=== PATIENT | female | born 2000 | race Caucasian/White ===

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

== ENCOUNTER → 2019-11-16 | Outpatient (CLI) | payer OTHER ==
--- NOTE | 2019-11-16 12:54 | US ---
EXAMINATION TYPE: US transvaginal DATE OF EXAM: 11/16/2019 COMPARISON: NONE CLINICAL HISTORY: N94.6 dysmenorrhea. heavy cycles for over 3 month, G0, h/o ovarian cysts TECHNIQUE: TV. Transvaginal sonographic images Date of LMP: 10/28/2019 EXAM MEASUREMENTS: Uterus: 6.2 x 3.3 x 4.4 cm Endometrial Stripe: 0.4 cm Right Ovary: 3.4 x 3.1 x 1.9 cm Left Ovary: 2.7 x 1.4 x 1.6 cm 1. Uterus: Retroverted wnl 2. Endometrium: wnl 3. Right Ovary: multiple follicles under 1cm 4. Left Ovary: multiple follicles under 1cm 5. Bilateral Adnexa: mild free fluid adjacent to rt ovary 6. Posterior cul-de-sac: wnl IMPRESSION: Small ovarian follicles. Small amount of free fluid noted.
== END | disposition home or self-care (01) ==
LOC: RADUSWWP 10:57
PROVIDERS: ATTEND Family Medicine
DX: N94.6 Dysmenorrhea, unspecified (principal)
CPT/HCPCS: 76830

== ENCOUNTER 2020-12-01 13:05 | Outpatient (CLI) | payer OTHER ==
[2020-12-01 14:47] VITALS: BP 117/76; PULSE 74; RESP 14; TEMP 97.8
--- NOTE | 2020-12-05 07:51 | P.MSEPDOC ---
Presenting Problems - Arrival Data Date of Arrival on Unit: 12/01/20 Time of Arrival on Unit: 13:06 Mode of Transport: Ambulatory - Complaint OB-Reason for Admission/Chief Complaint: Other Comment: cramping after intercourse Medical History - Information : 1 Para: 0 Term: 0 : 0 Abortions: Spontaneous or Elective: 0 Number of Living Children: 0 - Gestational Age Gestational Age by GENIE (wks/days): 38 Weeks and 5 Days Review of Systems - Review of Systems Constitutional: No problems Breast: No problems ENT: No problems Cardiovascular: No problems Respiratory: No problems Gastrointestinal: No problems Genitourinary: No problems Musculoskeletal: No problems Neurological: No problems Skin: No problems Vital Signs - Temperature Temperature: 97.8 F Temperature Source: Oral - Pulse Right Brachial Pulse Rate: 74 Pulse Assessment Method: Automatic Cuff - Respirations Respiratory Rate: 14 Oxygen Delivery Method: Room Air O2 Sat by Pulse Oximetry: 98 - Blood Pressure Right Arm Blood Pressure: 117/76 Blood Pressure Mean: 89 Blood Pressure Source: Automatic Cuff Medical Screen Scoring - Cervical Exam Dilation (cm): 1 Effacement (%): 50 Station: -2 Membranes: Intact - Uterine Contractions Resting: Soft to palpation - Assessment - Baby A Baseline FHR: 125 Heart Rate - NICHD Category: Category I (Normal) NST: Reactive Physician Notification - Physician Notified Physician Notified Date: 12/01/20 Physician Notified Time: 13:12 Physician: Sylwia Busby Order Received: Yes - Notification Comment Comment: monitor for one hour, recheck cervix, dc home with no change Maternal Triage Index - Maternal Triage Index Presenting for scheduled procedure w/no complaint: No - Stat/Priority 1 Stat Priority 1: No - Urgent/Priority 2 Urgent Priority 2: No - Prompt/Priority 3 Prompt Priority 3: No - Non-Urgent/Priority 4 Non-Urgent Priority 4: Yes Criteria Met for Priority 4: spoke with dr busby Disposition - Disposition OB Disposition: Physician follow up in office, Discharge to home Discharge Date: 12/01/20 Discharge Time: 14:30 I agree with the RN Medical Screening Exam: Yes Case reviewed; plan agreed upon as documented in EMR&OBIX.: Yes Comments: Patient was neither seen nor examined by me Diagnosis: FALSE LABOR AT OR AFTER 37 COMPLETED WEEKS OF GESTATION
== END 2020-12-01 14:30 | disposition home or self-care (01) ==
LOC: FBPOP 13:05
PROVIDERS: ATTEND Obstetrics & Gynecology
DX: O47.1 False labor at or after 37 completed weeks of gestation (principal); Z3A.38 38 weeks gestation of pregnancy
CPT/HCPCS: 99213

== ENCOUNTER 2020-12-05 00:37 | Inpatient (IN) | payer OTHER ==
[2020-12-05] MEDS ORDERED: METHYLERGONOVINE 0.2 MG/ML 1 ML AMP IM PRN (00:59)
[2020-12-05] MEDS ORDERED: TERBUTALINE 1 MG/ML VIAL SQ PRN (00:59)
[2020-12-05] MEDS ORDERED: LIDOCAINE 0.5% (PF) 5 MG/ML (50 ML SDV) SQ PRN (00:59)
[2020-12-05] MEDS ORDERED: CARBOPROST TROMETHAMINE 250 MCG/ML 1 ML AMP IM PRN (00:59)
[2020-12-05] MEDS ORDERED: OXYTOCIN 10 UNIT/ML 1 ML VIAL IM PRN (00:59)
[2020-12-05] MEDS ORDERED: LACTATED RINGERS 1,000 ML IV SCH (01:00)
[2020-12-05] MEDS ORDERED: OXYTOCIN 30 UNITS/500 ML NS 30 UNIT in SALINE 1 500ML.BAG IV SCH ×2 (01:00→12:45)
[2020-12-05 01:47] LABS: Basophils % (A) 0 %; Eosinophils # (A) 0.2 k/uL (0-0.7); Eosinophils % (A) 1 %; HCT 36.5 % (34.0-46.0); HGB 12.5 gm/dL (11.4-16.0); Lymphocytes # (A) 2.4 k/uL (1.0-4.8); Lymphocytes % (A) 19 %; MCH 29.5 pg (25.0-35.0); MCHC 34.4 g/dL (31.0-37.0); MCV 85.9 fL (80.0-100.0); Monocytes # (A) 0.7 k/uL (0-1.0); Monocytes % (A) 5 %; Neutrophils # (A) 8.9 k/uL (1.3-7.7); Neutrophils % (A) 72 %; Platelet Count 317 k/uL (150-450); RBC 4.25 m/uL (3.80-5.40); RDW 13.6 % (11.5-15.5); WBC 12.4 k/uL (3.8-10.6)
[2020-12-05] MEDS: LACTATED RINGERS 1,000 ML IV SCH ×3 (02:14→06:39)
[2020-12-05] MEDS: BUTORPHANOL 1 MG/ML 1 ML VIAL IV PRN ×2 (02:21→04:18)
[2020-12-05] MEDS ORDERED: ROPIVACAINE 5MG/ML 20ML VIAL ONE (05:36)
[2020-12-05] MEDS ORDERED: SODIUM CHLORIDE 0.9% 100 ML BAG ONE (05:36)
[2020-12-05] MEDS ORDERED: fentaNYL (PF) 50 MCG/ML 5 ML AMP ONE (05:36)
--- NOTE | 2020-12-05 08:42 | P.HPOB ---
History of Present Illness H&P Date: 12/05/20 Chief Complaint: IUP at 39 and 2/sevenths weeks, spontaneous rupture of memb ranchen. This is a 28-year-old 1 para 0 at 39-2/7 weeks, estimated due date of 12/10. Patient presents with complaints of spontaneous rupture of membranes at home. Patient states the fluid was clear in nature. Patient noted rupture membrane surrounding midnight. Patient denied contractions on admission. Patient notes good movement. Patient has been receiving routine care which has been essentially uncomplicated. Patient has a known blood type of B+, rubella status immune, hep Brenda surface antigen negative, HIV negative, RPR nonreactive, group beta strep culture negative. Review of Systems Constitutional: Denies chills, Denies fatigue, Denies fever Ears, nose, mouth and throat: Denies headache Cardiovascular: Reports leg edema Respiratory: Denies dyspnea Gastrointestinal: Denies nausea, Denies vomiting Genitourinary: Reports Past Medical History Past Medical History: No Reported History Additional Past Medical History / Comment(s): "glinch" on heart-getting US on 10/28/13 History of Any Multi-Drug Resistant Organisms: None Reported Past Surgical History: No Surgical Hx Reported Past Anesthesia/Blood Transfusion Reactions: No Reported Reaction Past Psychological History: No Psychological Hx Reported Smoking Status: Never smoker Past Alcohol Use History: None Reported Past Drug Use History: None Reported - Past Family History Mother Family Medical History: No Reported History Medications and Allergies Home Medications Medication Instructions Recorded Confirmed Type Pnv,Calcium 72/Iron/Folic Acid 1 tab PO DAILY 12/01/20 12/05/20 History [ Plus Tablet] Allergies Allergy/AdvReac Type Severity Reaction Status Date / Time No Known Allergies Allergy Verified 12/05/20 00:43 Exam Osteopathic Statement: *. No significant issues noted on an osteopathic structural exam other than those noted in the History and Physical/Consult. 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 She did receive an epidural overnight. Results Result Diagrams: 12/05/20 01:22 Abnormal Lab Results - Last 24 Hours (Table) 12/05/20 Range/Units 01:22 WBC 12.4 H (3.8-10.6) k/uL Neutrophils # 8.9 H (1.3-7.7) k/uL Assessment and Plan (1) 39 weeks gestation of Current Visit: Yes Status: Acute Code(s): Z3A.39 - 39 WEEKS GESTATION OF SNOMED Code(s): 80231606 (2) SROM (spontaneous rupture of membranes) Current Visit: Yes Status: Acute Code(s): HKJ0290 - SNOMED Code(s): 941681921 Plan: 20-year-old 1 para 0 at 39-2/7 weeks presented to labor and delivery with complaints of spontaneous rupture of membranes. Patient was admitted to labor and delivery with expectant management. Patient did become uncomfortable and requested epidural placement. Epidural was placed without difficulty by the anesthesia department. Patient is currently 78 7 m. Anticipate spontaneous vaginal delivery later today.
[2020-12-05] MEDS ORDERED: LANOLIN CREAM 5 GM TUBE TOPICAL PRN (12:34)
[2020-12-05] MEDS ORDERED: BENZOCAINE/MENTHOL SPRAY 1 GM/SPRAY AEROSOL TOPICAL PRN (12:34)
[2020-12-05] MEDS ORDERED: diphenhydrAMINE 50 MG/ML 1 ML VIAL IVP PRN ×2 (12:34)
[2020-12-05] MEDS ORDERED: diphenhydrAMINE 25 MG CAP PO PRN (12:34)
[2020-12-05] MEDS ORDERED: ACETAMINOPHEN TAB 325 MG TAB PO PRN (12:34)
[2020-12-05] MEDS ORDERED: SIMETHICONE 80 MG CHEWABLE PO PRN (12:34)
[2020-12-05] MEDS ORDERED: HYDROCORTISONE 2.5% RECTAL CREAM 30 GM TUBE RECTAL PRN (12:34)
[2020-12-05] MEDS ORDERED: ZOLPIDEM 5 MG TAB PO PRN (12:34)
[2020-12-05] MEDS ORDERED: diphenhydrAMINE 50 MG CAP PO PRN (12:34)
--- NOTE | 2020-12-05 12:37 | P.PROBDLV ---
Vaginal Delivery Note - . Vaginal Delivery Note: This is a 20-year-old 1 para 0 that presented at 39-2/7 weeks to labor and delivery with complaints of spontaneous rupture of membranes around midnight. Patient states the fluid was clear in nature. Patient was admitted to labor and delivery with expectant management. Patient began murphy and became uncomfortable. Patient requested epidural placement. Epidural was placed without difficulty by the anesthesia department. Patient progressed to complete was placed in a modified lithotomy position and began pushing. Patient had a normal spontaneous vaginal delivery of a viable male infant at 1220, weight of 5 lbs. 8 oz., Apgars of 9 and 9 at one and 5 minutes respect daily. After two-minute delayed the umbilical cord was doubly clamped and cut. The placenta was delivered spontaneously intact with a three-vessel cord being noted. On inspection the patient's vaginal vault no vaginal lacerations were appreciated. All counts were noted to be correct 2. S May blood loss 100 mL. Patient and infant tolerated delivery well and are resting comfortable he.
[2020-12-05] MEDS: IBUPROFEN 600 MG TAB PO PRN ×2 (13:15→19:59)
[2020-12-05] MEDS: SENNOSIDES-DOCUSATE SODIUM 1 EACH TAB PO SCH (19:59)
[2020-12-06] MEDS: IBUPROFEN 600 MG TAB PO PRN (07:56)
[2020-12-06] MEDS: SENNOSIDES-DOCUSATE SODIUM 1 EACH TAB PO SCH (07:56)
[2020-12-06 08:23] VITALS: BP 110/70; PULSE 65; RESP 16; TEMP 98.4
[2020-12-06] MEDS ORDERED: PRENATAL VIT-IRON-FOLIC ACID 1 EACH CAP PO SCH (09:00)
--- NOTE | 2020-12-06 09:56 | P.DS ---
Providers Date of admission: 12/05/20 00:53 Expected date of discharge: 12/06/20 Attending physician: Manuela Dumont Primary care physician: Stated None - Discharge Diagnosis(es) (1) 39 weeks gestation of Current Visit: Yes Status: Acute (2) SROM (spontaneous rupture of membranes) Current Visit: Yes Status: Acute (3) Status post vaginal delivery Current Visit: Yes Status: Acute Hospital Course: This is a 20-year-old 1 now para 1 that presented to labor and delivery at 39-2/7 weeks with complaints of spontaneous rupture of membranes. Patient stated the fluid was clear at home upon rupture. Patient presented to labor and delivery and was admitted. Patient began murphy on her own without augmentation. Patient did become uncomfortable and requested epidural placement. Epidural was placed without difficulty by the anesthesia department. Patient then progressed to complete began pushing and had a normal spontaneous vaginal delivery of a viable male at 1220, weight of 5 lbs. 8 oz. Patient did not sustain any vaginal lacerations during delivery. Patient's course has been uneventful. On this day #1 she is ambulatory and voiding without difficulty. She tolerating regular diet without nausea or vomiting. She states her pain is well-controlled. Her lochia is minimal. She is bottle feeding. Patient Condition at Discharge: Good Plan - Discharge Summary New Discharge Prescriptions: No Action Pnv,Calcium 72/Iron/Folic Acid [ Plus Tablet] 1 tab PO DAILY Discharge Medication List Pnv,Calcium 72/Iron/Folic Acid [ Plus Tablet] 1 tab PO DAILY 12/01/20 [History] Follow up Appointment(s)/Referral(s): Manuela Dumont DO [Doctor of Osteopathic Medicine] - 4 Weeks Discharge Disposition: HOME SELF-CARE
== END 2020-12-06 15:35 | disposition home or self-care (01) | DRG 807 ==
LOC: FBPOP 00:37 → 4FBP 00:53
PROVIDERS: ADMIT Obstetrics & Gynecology Obstetrics; ATTEND Obstetrics & Gynecology Obstetrics
PROC: 10E0XZZ Delivery of Products of Conception, External Approach (ICD-10-PCS; principal; 2020-12-05)
DX: O80 Encounter for full-term uncomplicated delivery (principal); Z37.0 Single live birth; Z3A.39 39 weeks gestation of pregnancy
CPT/HCPCS: 59025; 84112; 85025; 86850; 86900; 86901; 88307; 99213

== ENCOUNTER 2023-05-20 15:43 | Emergency (ER) | payer OTHER ==
--- NOTE | 2023-05-20 15:53 | ED ---
Abdominal Pain HPI - General Source: patient, RN notes reviewed Mode of arrival: ambulatory Limitations: no limitations <Yue Staples - Last Filed: 05/20/23 15:52> - History of Present Illness MD Complaint: abdominal pain Onset/Timin -: week(s) Location: LLQ Radiation: none Migration to: no migration Severity: moderate Quality: aching Consistency: constant Improves With: nothing Worsens With: nothing Associated Symptoms: denies other symptoms - Related Data LMP (females 10-50): 3 months <Roman Martinez - Last Filed: 05/23/23 07:53> - General Stated Complaint: Pain in side Time Seen by Provider: 05/20/23 15:52 - History of Present Illness Initial Comments: Quick note: Patient is a 22-year-old female presenting to the ER with a chief complaint of left lower abdominal pain. Patient reports that she is about 12 weeks . She states this pain is sharp and intermittent for the past week. Denies any vaginal bleeding or discharge. (Yue Staples) As above, this patient is a 22-year-old woman presenting with left lower quadrant pain that has been intermittent going back 1 week. She presents here because the pain became constant and was more severe since 1 PM. She has not noted change in urination or bowel movements. No vaginal discharge/bleeding. Patient does have previous history of ovarian cyst. (Roman Martinez) - Related Data Home Medications Medication Instructions Recorded Confirmed Vit No.180/Iron/Folic 1 tab PO DAILY 12/01/20 12/05/20 [ Plus Tablet] Allergies Allergy/AdvReac Type Severity Reaction Status Date / Time No Known Allergies Allergy Verified 05/20/23 16:04 Review of Systems ROS Other: All systems not noted in ROS Statement are negative. <Yue Staples - Last Filed: 05/20/23 15:52> ROS Other: All systems not noted in ROS Statement are negative. Constitutional: Denies: fever, chills Respiratory: Denies: cough, dyspnea Cardiovascular: Denies: chest pain, palpitations, edema Gastrointestinal: Reports: abdominal pain. Denies: nausea, vomiting, diarrhea, constipation Genitourinary: Denies: dysuria, hematuria, discharge, abnormal menses Musculoskeletal: Denies: back pain Skin: Denies: rash Neurological: Denies: headache, weakness, numbness <Roman Martinez - Last Filed: 05/23/23 07:53> ROS Statement: Those systems with pertinent positive or pertinent negative responses have been documented in the HPI. Past Medical History Past Medical History: No Reported History Additional Past Medical History / Comment(s): "glinch" on heart-getting US on 10/28/13 History of Any Multi-Drug Resistant Organisms: None Reported Past Surgical History: No Surgical Hx Reported Past Anesthesia/Blood Transfusion Reactions: No Reported Reaction Past Psychological History: No Psychological Hx Reported Smoking Status: Never smoker Past Alcohol Use History: None Reported Past Drug Use History: None Reported - Past Family History Mother Family Medical History: No Reported History <Yue Staples - Last Filed: 05/20/23 15:52> General Exam <Yue Staples - Last Filed: 05/20/23 15:52> General appearance: alert, in no apparent distress Head exam: Present: atraumatic, normocephalic Eye exam: Present: normal appearance. Absent: scleral icterus, conjunctival injection Neck exam: Present: normal inspection Respiratory exam: Present: normal lung sounds bilaterally. Absent: respiratory distress, wheezes, rales, rhonchi, stridor, accessory muscle use Cardiovascular Exam: Present: regular rate, normal rhythm, normal heart sounds. Absent: systolic murmur, diastolic murmur, rubs, gallop GI/Abdominal exam: Present: soft. Absent: distended, tenderness, guarding, rebound, rigid, mass, pulsatile mass, hernia Extremities exam: Present: normal inspection, normal capillary refill. Absent: pedal edema, calf tenderness Back exam: Present: normal inspection. Absent: CVA tenderness (R), CVA tenderness (L) Neurological exam: Present: alert Skin exam: Present: warm, dry, intact, normal color. Absent: rash <Roman Martinez - Last Filed: 05/23/23 07:53> - General Exam Comments Initial Comments: Visual Physical Exam Vital signs reviewed General: Well-appearing, nontoxic, no acute distress. Head: Normocephalic, atraumatic Eyes: PERRLA, EOMI ENT: Airway patent Chest: Nonlabored breathing Skin: No visual rash, normal skin tone Neuro: Alert and oriented 3 Musculoskeletal: No gross abnormalities (Yue Staples) Course Vital Signs 05/20/23 05/20/23 05/20/23 16:01 18:31 19:47 Temperature 98.0 F 98.1 F Pulse Rate 63 63 78 Respiratory 17 18 18 Rate Blood Pressure 114/70 115/73 122/70 O2 Sat by Pulse 100 100 100 Oximetry Medical Decision Making <Yue Staples - Last Filed: 05/20/23 15:52> - Lab Data Result diagrams: 05/20/23 16:22 05/20/23 16:22 <Roman Martinez - Last Filed: 05/23/23 07:53> - Medical Decision Making I performed the quick note portion of this chart. Electronically signed by Yue Staples PA-C (Yue Staples) The patient had pelvic ultrasound that shows what appears to be approximately 12-week . There is right ovarian cyst by my interpretation This patient is a 22-year-old woman with left lower quadrant pain and first trimester . The patient had workup here and received Tylenol and was feeling better. I reviewed with the patient that based on current studies it is impossible to rule out ovarian torsion, but the patient is feeling better and would not like to have additional ultrasound at this point. I discussed that with torsion there can be risk to ovarian function as well as fertility. I did discuss her case with gynecology on-call and they will see the patient in clinic. I discussed further care and follow-up as well as return parameters Was pt. sent in by a medical professional or institution (LING Mcneal, DATA REPORT ANALYST, urgent care, hospital, or longterm...) When possible be specific @ -[Patient was recommended to go to the ER by her physician Did you speak to anyone other than the patient for history (EMS, parent, family, police, friend...)? What history was obtained from this source @ -[No] Did you review nursing and triage notes (agree or disagree)? Why? @ -[I reviewed and agree with nursing and triage notes] Were old charts reviewed (outside hosp., previous admission, EMS record, old EKG, old radiological studies, urgent care reports/EKG's, longterm records)? Report findings @ -[No old charts were reviewed] Differential Diagnosis (chest pain, altered mental status, abdominal pain women, abdominal pain men, vaginal bleeding, weakness, fever, dyspnea, syncope, headache, dizziness, GI bleed, back pain, seizure, CVA, palpatations, mental health, musculoskeletal)? @ -[not applicable] EKG interpreted by me (3pts min.). @ -[ X-rays interpreted by me (1pt min.). @ -[None done] CT interpreted by me (1pt min.). @ -[None done] U/S interpreted by me (1pt. min.). @ -[I interpreted as above What testing was considered but not performed or refused? (CT, X-rays, U/S, labs)? Why? @ -[None] What meds were considered but not given or refused? Why? @ -[None] Did you discuss the management of the patient with other professionals (professionals i.e. , PA, DATA REPORT ANALYST, lab, RT, psych nurse, social welfare administrator, youth counselor, teacher, consumer safety officer, immigration case manager)? Give summary @ -[Yes, as above Was smoking cessation discussed for >3mins.? @ -[No] Was critical care preformed (if so, how long)? @ -[No] Were there social determinants of health that impacted care today? How? (Homelessness, low income, unemployed, alcoholism, drug addiction, transportation, low edu. Level, literacy, decrease access to med. care, long-term, rehab)? @ -[No] Was there de-escalation of care discussed even if they declined (Discuss DNR or withdrawal of care, Hospice)? DNR status @ -[No] What co-morbidities impacted this encounter? (DM, HTN, Smoking, COPD, CAD, Cancer, CVA, ARF, Chemo, Hep., AIDS, mental health diagnosis, sleep apnea, morbid obesity)? @ -[History of ovarian cyst Was patient admitted / discharged? Hospital course, mention meds given and route, prescriptions, significant lab abnormalities, going to OR and other pertinent info. @ -[As above Undiagnosed new problem with uncertain prognosis? @ -[No] Drug Therapy requiring intensive monitoring for toxicity (Heparin, Nitro, Insulin, Cardizem)? @ -[No] Were any procedures done? @ -[No] Diagnosis/symptom? @ -[Acute left lower quadrant pain in Acute, or Chronic, or Acute on Chronic? @ -[Acute Uncomplicated (without systemic symptoms) or Complicated (systemic symptoms)? @ -[Uncomplicated Side effects of treatment? @ -[No] Exacerbation, Progression, or Severe Exacerbation? @ -[No] Poses a threat to life or bodily function? How? (Chest pain, [place], [place], pneumonia, PE, COPD, DKA, ARF, appy, cholecystitis, CVA, Diverticulitis, Homicidal, Suicidal, threat to staff... and all critical care pts) @ -[As above (Roman Martinez) - Lab Data Lab Results 05/20/23 05/20/23 05/20/23 Range/Units 16:22 16:22 18:45 WBC 8.8 (3.8-10.6) k/uL RBC 4.07 (3.80-5.40) m/uL Hgb 11.9 (11.4-16.0) gm/dL Hct 35.5 (34.0-46.0) % MCV 87.2 (80.0-100.0) fL MCH 29.2 (25.0-35.0) pg MCHC 33.5 (31.0-37.0) g/dL RDW 12.8 (11.5-15.5) % Plt Count 229 (150-450) k/uL MPV 7.5 Sodium 135 L (137-145) mmol/L Potassium 4.3 (3.5-5.1) mmol/L Chloride 104 (98-107) mmol/L Carbon Dioxide 20 L (22-30) mmol/L Anion Gap 11 mmol/L BUN 9 (7-17) mg/dL Creatinine 0.54 (0.52-1.04) mg/dL Est GFR (CKD-EPI)AfAm >90 (>60 ml/min/1.73 sqM) Est GFR (CKD-EPI)NonAf >90 (>60 ml/min/1.73 sqM) Glucose 80 (74-99) mg/dL Calcium 9.5 (8.4-10.2) mg/dL Total Bilirubin 0.5 (0.2-1.3) mg/dL AST 20 (14-36) U/L ALT 10 (4-34) U/L Alkaline Phosphatase 45 (38-126) U/L Total Protein 7.3 (6.3-8.2) g/dL Albumin 4.5 (3.5-5.0) g/dL HCG, Quant 46885.5 mIU/mL Urine Color Light Yellow Urine Appearance Clear (Clear) Urine pH 5.5 (5.0-8.0) Ur Specific [place] 1.020 (1.001-1.035) Urine Protein Negative (Negative) Urine Glucose (UA) Negative (Negative) Urine Ketones 2+ H (Negative) Urine Blood Negative (Negative) Urine Nitrite Negative (Negative) Urine Bilirubin Negative (Negative) Urine Urobilinogen <2.0 (<2.0) mg/dL Ur Leukocyte Esterase Negative (Negative) Disposition <Yue Staples - Last Filed: 05/20/23 15:52> Is patient prescribed a controlled substance at d/c from ED?: No <Roman Martinez - Last Filed: 05/23/23 07:53> Clinical Impression: Abdominal pain affecting Disposition: HOME SELF-CARE Condition: Good Instructions (If sedation given, give patient instructions): Abdominal Pain (ED) Referrals: Paras Genao DO [Primary Care Provider] - 1-2 days
[2023-05-20 16:47] LABS: HCT 35.5 % (34.0-46.0); HGB 11.9 gm/dL (11.4-16.0); MCH 29.2 pg (25.0-35.0); MCHC 33.5 g/dL (31.0-37.0); MCV 87.2 fL (80.0-100.0); Mean Platelet Volume 7.5; Platelet Count 229 k/uL (150-450); RBC 4.07 m/uL (3.80-5.40); RDW 12.8 % (11.5-15.5); WBC 8.8 k/uL (3.8-10.6)
--- NOTE | 2023-05-20 16:50 | US ---
EXAMINATION TYPE: Transabdominal DATE OF EXAM: 05/20/2023 4:36 PM COMPARISON: NONE CLINICAL INDICATION: Female, 22 years old with history of LLQ abdominal pain x 1 week; LLQ pain on an d off x 1 week. EXAM PERFORMED: Transabdominal (TA) EXAM MEASUREMENTS: GESTATIONAL AGE / DATING Physician Established: (11 weeks/6 days) EDC: 12/03/23 Dates by LMP: LMP unknown Dates by First Scan: No previous this is first scan Dates by Current Scan for: (12 weeks/2 days) EDC: 11/30/23 MATERNAL ANATOMY Uterus: 11.9 x 9.7 x 5.4cm Right Ovary: 4.4 x 4.0 x 4.2cm Complex cyst seen 4.3 x 3.7 x 2.8cm Left Ovary: 4.2 x 3.4 x 1.5cm Post CDS / Adnexa: Vessels in left adnexa appear dilated Presence of free fluid: No Presence of corpus luteal cyst: Not seen Presence of subchorionic bleed: No GESTATION / SURVEY CRL: 5.6cm (12 weeks/2 days) MSD: Not measured, appears wnl Yolk Sac (normal less than 6mm): Not seen, placenta forming Heart Rate: 152 bpm Rhythm: Normal IUP: Viable IUP Date of LMP: unknown Beta HcG (if available): N/A IMPRESSION: 1. Live intrauterine of 12 weeks, 2 days gestational age, heart rate 152 BPM
[2023-05-20 17:08] LABS: ALT 10 U/L (4-34); AST 20 U/L (14-36); African American GFR (CKD) >90 (>60 ml/min/1.73 sqM); Albumin 4.5 g/dL (3.5-5.0); Alkaline Phosphatase 45 U/L (38-126); Anion Gap 11 mmol/L; Blood Urea Nitrogen 9 mg/dL (7-17); Calcium 9.5 mg/dL (8.4-10.2); Carbon Dioxide 20 mmol/L (22-30); Chloride 104 mmol/L (98-107); Glucose 80 mg/dL (74-99); Non-African American GFR(CKD) >90 (>60 ml/min/1.73 sqM); Potassium 4.3 mmol/L (3.5-5.1); Sodium 135 mmol/L (137-145); Total Bilirubin 0.5 mg/dL (0.2-1.3); Total Protein 7.3 g/dL (6.3-8.2)
[2023-05-20 17:52] LABS: HCG,Quantitative Serum 57553.5 mIU/mL
[2023-05-20] MEDS: ACETAMINOPHEN TAB 325 MG TAB PO STA (18:28)
[2023-05-20 18:55] LABS: Appearance,Urine Clear (Clear); Bilirubin,Urine Negative (Negative); Blood,Urine Negative (Negative); Color,Urine Light Yellow; Glucose,Urine (UA) Negative (Negative); Leukocyte Esterase,Urine Negative (Negative); Nitrite,Urine Negative (Negative); PH, Urine 5.5 (5.0-8.0); Protein,Urine Negative (Negative); Urobilinogen,Urine <2.0 mg/dL (<2.0)
[2023-05-20 18:57] LABS: Ketones,Urine 2+ (Negative)
[2023-05-20 19:14] VITALS: RESP 18; TEMP 98.1
[2023-05-20 19:47] VITALS: BP 122/70; PULSE 78
== END 2023-05-20 19:47 | disposition home or self-care (01) ==
LOC: EC 15:43
DX: O26.891 Other specified pregnancy related conditions, first trimester (principal); R10.32 Left lower quadrant pain; Z3A.12 12 weeks gestation of pregnancy
CPT/HCPCS: 36415; 76801; 80053; 81003; 84702; 85027; 99284

== ENCOUNTER 2023-11-26 06:04 | Inpatient (IN) | payer OTHER ==
[2023-11-26] MEDS ORDERED: miSOPROStoL 200 MCG TAB PO PRN (06:23)
[2023-11-26] MEDS ORDERED: TRANEXAMIC 1,000 MG/100ML-NACL 1,000 MG in EMPTY BAG 1 BAG IV PRN (06:23)
[2023-11-26] MEDS ORDERED: miSOPROStoL 200 MCG TAB RECTAL PRN (06:23)
[2023-11-26] MEDS ORDERED: METHYLERGONOVINE 0.2 MG/ML 1 ML AMP IM PRN (06:23)
[2023-11-26] MEDS ORDERED: OXYTOCIN 10 UNIT/ML 1 ML VIAL IM PRN (06:23)
[2023-11-26] MEDS ORDERED: CARBOPROST TROMETHAMINE 250 MCG/ML 1 ML AMP IM PRN (06:23)
[2023-11-26] MEDS ORDERED: TERBUTALINE 1 MG/ML VIAL SQ PRN (06:23)
[2023-11-26] MEDS ORDERED: LIDOCAINE 0.5% (PF) 5 MG/ML (50 ML SDV) SQ PRN (06:23)
[2023-11-26 06:46] LABS: Basophils % (A) 0 %; Eosinophils # (A) 0.1 k/uL (0-0.7); Eosinophils % (A) 1 %; HCT 34.6 % (34.0-46.0); HGB 11.1 gm/dL (11.4-16.0); Hypochromasia Slight; Lymphocytes % (A) 21 %; MCH 26.4 pg (25.0-35.0); MCHC 32.1 g/dL (31.0-37.0); MCV 82.2 fL (80.0-100.0); Mean Platelet Volume 8.3; Monocytes # (A) 0.5 k/uL (0-1.0); Monocytes % (A) 5 %; Neutrophils # (A) 6.6 k/uL (1.3-7.7); Neutrophils % (A) 71 %; Platelet Count 276 k/uL (150-450); RBC 4.21 m/uL (3.80-5.40); RDW 13.6 % (11.5-15.5); WBC 9.2 k/uL (3.8-10.6)
[2023-11-26] MEDS: LACTATED RINGERS 1,000 ML IV SCH (06:48)
[2023-11-26] MEDS: OXYTOCIN 30 UNITS/500 ML NS 30 UNIT in SALINE 1 500ML.BAG IV SCH (06:49)
[2023-11-26] MEDS: NALBUPHINE 10 MG/ML (10 ML MDV) IV PRN (09:22)
[2023-11-26] MEDS ORDERED: ROPIVACAINE 5 MG/ML 30 ML VIAL ONE (11:26)
[2023-11-26] MEDS ORDERED: SODIUM CHLORIDE 0.9% 250 ML BAG ONE (11:26)
[2023-11-26] MEDS ORDERED: fentaNYL (PF) 50 MCG/ML 5 ML AMP ONE (11:26)
--- NOTE | 2023-11-26 14:02 | P.HPOB ---
History of Present Illness H&P Date: 11/26/23 Chief Complaint: IUP at 39-0/7 weeks This is a 23-year-old 2 para 1 at 39-0/7 weeks, estimated due date of 12/02 that presents to labor and delivery for induction of labor. Patient has been receiving routine care which been essentially uncomplicated. Patient notes good movement denies vaginal bleeding loss of fluid or contractions upon admission On blood work this patient is a type of B+, rubella status nonimmune, hepatitis B surface engine negative, HIV negative, RPR is nonreactive, grew beta strep culture is negative. Review of Systems Constitutional: Denies chills, Denies fatigue, Denies fever Ears, nose, mouth and throat: Denies headache Cardiovascular: Reports leg edema Respiratory: Denies dyspnea Gastrointestinal: Denies constipation, Denies diarrhea, Denies nausea, Denies vomiting Genitourinary: Reports Past Medical History Past Medical History: No Reported History Additional Past Medical History / Comment(s): "glinch" on heart-getting US on 10/28/13 History of Any Multi-Drug Resistant Organisms: None Reported Past Surgical History: No Surgical Hx Reported Additional Past Surgical History / Comment(s): [place] teeth Past Anesthesia/Blood Transfusion Reactions: No Reported Reaction Past Psychological History: Depression Smoking Status: Vaper Past Alcohol Use History: None Reported Past Drug Use History: None Reported - Past Family History Mother Family Medical History: No Reported History Medications and Allergies Home Medications Medication Instructions Recorded Confirmed Type Vit No.180/Iron/Folic 1 tab PO DAILY 12/01/20 11/26/23 History [ Plus Tablet] Ondansetron [Zofran] 4 mg PO Q8HR PRN 11/26/23 11/26/23 History Allergies Allergy/AdvReac Type Severity Reaction Status Date / Time No Known Allergies Allergy Verified 11/26/23 06:21 Exam Osteopathic Statement: *. No significant issues noted on an osteopathic structural exam other than those noted in the History and Physical/Consult. Vital Signs Temp Pulse Resp BP Pulse Ox 11/26/23 06:41 96.2 F L 92 16 117/75 97 Intake and Output 11/25/23 11/26/23 11/26/23 22:59 06:59 14:59 Other: Weight 79.379 kg Targeted physical exam is performed this date General Is a well-nourished well- developed female in no acute distress, breathing is nonlabored, heart has a regular rate and rhythm, abdomen is gravid and appropriate for gestational age, on cervical exam she is 1/50/-2 station amniotomy is performed clear fluid was obtained. heart tones noted to be category 1 and she is murphy irregularly. Results Result Diagrams: 11/26/23 06:33 Abnormal Lab Results - Last 24 Hours (Table) 11/26/23 Range/Units 06:33 Hgb 11.1 L (11.4-16.0) gm/dL Assessment and Plan (1) 39 weeks gestation of Current Visit: No Status: Acute Code(s): Z3A.39 - 39 WEEKS GESTATION OF SNOMED Code(s): 67838058 Plan: 23-year-old G2, P1 at 39-0/7 weeks that presents to labor and delivery for induction of labor. Patient is admitted and Pitocin induction of labor was begun. Options for analgesia are discussed and patient elects epidural when appropriate. Amniotomy is performed and clear fluid was obtained. Anticipate spontaneous vaginal delivery.
[2023-11-26] MEDS ORDERED: HYDROCORTISONE 2.5% RECTAL CREAM 30 GM TUBE RECTAL PRN (14:04)
[2023-11-26] MEDS ORDERED: diphenhydrAMINE 50 MG CAP PO PRN (14:04)
[2023-11-26] MEDS ORDERED: LANOLIN CREAM 1 GM TUBE TOPICAL PRN (14:04)
[2023-11-26] MEDS ORDERED: diphenhydrAMINE 50 MG/ML 1 ML VIAL IVP PRN ×2 (14:04)
[2023-11-26] MEDS ORDERED: SIMETHICONE 80 MG CHEWABLE PO PRN (14:04)
[2023-11-26] MEDS ORDERED: ZOLPIDEM 5 MG TAB PO PRN (14:04)
[2023-11-26] MEDS ORDERED: diphenhydrAMINE 25 MG CAP PO PRN (14:04)
[2023-11-26] MEDS ORDERED: BENZOCAINE/MENTHOL SPRAY 1 GM/SPRAY AEROSOL TOPICAL PRN (14:04)
--- NOTE | 2023-11-26 14:04 | P.PROBDLV ---
Vaginal Delivery Note - . Vaginal Delivery Note: Findings viable female delivered at 1347, weight of 6 pounds 7 ounces 23-year-old G2, P1 at 39-0/7 weeks that presents to labor and delivery for induction of labor. Patient is admitted and Pitocin induction of labor was begun. Patient underwent amniotomy and clear fluid was obtained. Patient progressed through labor eventually becoming uncomfortable and requesting epidural. Epidural was placed without difficulty by the anesthesia department. Patient made quick progress toward complete. Once completely dilated patient began pushing and had a normal spontaneous vaginal delivery of a viable female at 1347, weight of 6 pounds 7 ounces, Apgars of 9 and 9 at 1 and 5 minutes respectively. After 2-minute delay the umbilical cord was doubly clamped and cut and the placenta was delivered spontaneously, intact, three- vessel cord is appreciated. Uterus was noted to be firm and below the umbilicus. On inspection the patient's vaginal vault no lacerations were appreciated. All counts were to be correct x 2 at the end of the delivery. Patient and infant tolerated delivery well and are resting comfortably.
[2023-11-26] MEDS: IBUPROFEN 800 MG TAB PO SCH (14:56)
[2023-11-26] MEDS: ACETAMINOPHEN TAB 500 MG TAB PO SCH (14:56)
[2023-11-26] MEDS: SENNOSIDES-DOCUSATE SODIUM 1 EACH TAB PO SCH (20:38)
[2023-11-27] MEDS: PRENATAL VIT-IRON-FOLIC ACID 1 EACH TABLET PO SCH (08:34)
[2023-11-27 08:54] VITALS: BP 114/73; PULSE 67; RESP 16; TEMP 97.8
--- NOTE | 2023-11-27 09:26 | P.DS ---
Providers Date of admission: 11/26/23 06:04 Expected date of discharge: 11/27/23 Attending physician: Manuela Dumont Primary care physician: Stated None - Discharge Diagnosis(es) (1) 39 weeks gestation of Current Visit: No Status: Acute (2) Status post vaginal delivery Current Visit: No Status: Acute Hospital Course: 33-year-old 2 now para 2 that presented to labor and delivery on 11/25 for scheduled induction of labor. Estimated due date of 12/02. Patient has been receiving routine care which has been essentially uncomplicated. Patient notes good movement denies vaginal bleeding or loss of fluid. Patient was admitted to labor and delivery and Pitocin induction of labor was begun. Amniotomy was performed and clear fluid was obtained. Patient progressed through labor eventually becoming uncomfortable requesting epidural. Epidural was placed without difficulty by the anesthesia department. Patient made good progress toward complete dilation. Once completely dilated patient began pushing and had a normal spontaneous vaginal delivery of a viable female at 1347, weight of 6 pounds 7 ounces, Apgars of 9 and 9 at 1 and 5 minutes respectively. No vaginal lacerations were appreciated after delivery of the . Patient's course has been essentially uneventful. In this day #1 she is ambulating and voiding without difficulty. She is tolerating a regular diet without nausea or vomiting. She states her pain is well-controlled. She denies concerns and would like discharge home at 24 hours. Patient Condition at Discharge: Good Plan - Discharge Summary New Discharge Prescriptions: No Action Ondansetron [Zofran] 4 mg PO Q8HR PRN PRN Reason: Nausea Vit No.180/Iron/Folic [ Plus Tablet] 1 tab PO DAILY Discharge Medication List Vit No.180/Iron/Folic [ Plus Tablet] 1 tab PO DAILY 12/01/20 [History] Ondansetron [Zofran] 4 mg PO Q8HR PRN 11/26/23 [History] Follow up Appointment(s)/Referral(s): Manuela Dumont DO [Doctor of Osteopathic Medicine] - 6 Weeks Patient Instructions/Handouts: Vaginal Delivery (DC), Vaginal Delivery (GEN) Activity/Diet/Wound Care/Special Instructions: No intercourse, tampons or tub baths. No driving for two weeks. Call with any fever, shakes or chills, with any pain not alleviated by over the counter meds, or with any questions or concerns. [id number] ibuprofen 600 mg or 3 tablets every 6 hours as needed for pain. Discharge Disposition: HOME SELF-CARE
[2023-11-27] MEDS: MEASLES-MUMPS-RUBELLA VACC/PF 12,500 UNIT/0.5 ML VIAL SQ ONE (11:09)
[2023-11-27] MEDS: INFLUENZA VACC (6 MOS-64 YRS) 45 MCG/0.5 ML SYRINGE IM ONE (11:10)
== END 2023-11-27 14:42 | disposition home or self-care (01) | DRG 560 ==
LOC: 4FBP 06:04
PROVIDERS: ADMIT Obstetrics & Gynecology Obstetrics; ATTEND Obstetrics & Gynecology Obstetrics
PROC: 10E0XZZ Delivery of Products of Conception, External Approach (ICD-10-PCS; principal; 2023-11-26)
PROC: 10907ZC Drainage of Amniotic Fluid, Therapeutic from Products of Conception, Via Natural or Artificial Opening (ICD-10-PCS; 2023-11-26)
PROC: 3E033VJ Introduction of Other Hormone into Peripheral Vein, Percutaneous Approach (ICD-10-PCS; 2023-11-26)
DX: O80 Encounter for full-term uncomplicated delivery (principal); Z37.0 Single live birth; Z3A.39 39 weeks gestation of pregnancy
CPT/HCPCS: 85025; 86850; 86900; 86901; 90656; 90707